=== PATIENT | male | born 1970 | race Caucasian/White ===

== ENCOUNTER 2020-08-19 14:14 | Emergency (ER) | payer OTHER ==
[~2020-08-19 14:14] MED LIST: CLARITIN10 MG PO; FLONASE 0.05% N16 GM; GABAPENTIN300 MG PO; HYDROCORTISONE10 MG PO; KLONOPIN TAB 00.5 MG PO; NORCO 10-325 T1 EACH PO; NORVASC10 MG PO; PERCOCET 10-321 EACH PO; PERCOCET 5/325 T1 EA PO; ROBAXIN 750 MG750 MG PO; ROBAXIN-750750 MG PO; SINGULAIR10 MG PO; SYNTHROID137 MCG PO; TESTOSTERO200 MG/11 IM; VITAMIN B-121000 MCG PO; VITAMIN D32000 UNI1 PO; ZANTAC150 MG PO; ZESTRIL40 MG PO; ZYRTEC10 M3 PO
[2020-08-19 18:01] LABS: HEMOGLOBIN 13.3 gm/dl (14.0-17.5); RED BLOOD COUNT 4.58 M/UL (4.20-5.50); WHITE BLOOD COUNT 7.7 K/UL (4.5-11.0)
[2020-08-19 18:16] LABS: BUN/CREATININE RATIO 11 (0-10)
[2020-08-19] MEDS ORDERED: ZOFRAN ODT 4 MG4 MG PO (18:38)
== END 2020-08-19 18:42 | disposition home or self-care (01) ==
LOC: ER1 14:14
PROVIDERS: Physician Assistant
DX: R10.32 Left lower quadrant pain (principal); Z87.442 Personal history of urinary calculi; Z88.8 Allergy status to other drugs, medicaments and biological substances
CPT/HCPCS: 80053; 81001; 85025; 99284

== ENCOUNTER → 2021-08-18 | Day surgery (SDC) | payer OTHER ==
[~2021-08-18] VITALS: Ht 175.3 cm; Wt 117.9 kg
[~2021-08-18] MED LIST changes: +AMLODIPINE BESY10 MG PO; +BUSPIRONE HCL10 MG PO; +HYDROCODON-ACE1 EAC2 PO; +PRILOSEC OTC20 MG PO; +TIZANIDINE HCL6 MG PO; +ZOFRAN ODT 4 MG4 MG PO
[2021-08-18 10:19] LABS: HEMOGLOBIN 15.7 gm/dl (14.0-17.5); RED BLOOD COUNT 5.27 M/UL (4.20-5.50); WHITE BLOOD COUNT 10.4 K/UL (4.5-11.0)
[2021-08-18 10:37] LABS: BUN/CREATININE RATIO 10 (0-10)
== END | disposition home or self-care (01) ==
LOC: OR 09:48
PROVIDERS: Orthopaedic Surgery
DX: T84.84XA Pain due to internal orthopedic prosthetic devices, implants and grafts, initial encounter (principal); T84.213A Breakdown (mechanical) of internal fixation device of bones of foot and toes, initial encounter; G89.18 Other acute postprocedural pain; I10 Essential (primary) hypertension; K21.9 Gastro-esophageal reflux disease without esophagitis; E07.9 Disorder of thyroid, unspecified; Z88.8 Allergy status to other drugs, medicaments and biological substances; Z79.899 Other long term (current) drug therapy
CPT/HCPCS: 36415; 71045; 73620; 76000; 80048; 85025; 93005; J0690; J1100; J2001; J2250; J2405; J2704; J2795; J3010; J3370; J7070; J7120